=== PATIENT | male | born 1975 | race Caucasian/White ===

== ENCOUNTER → 2024-06-19 09:15 | Outpatient (REF) | payer OTHER, SELFPAY | LOC: DHSLP 09:15 | PROVIDERS: ATTENDING PHYSICIAN Internal Medicine | DX: G47.33 Obstructive sleep apnea (adult) (pediatric) (principal); G47.00 Insomnia, unspecified; G47.61 Periodic limb movement disorder | CPT/HCPCS: 95810 ==